=== PATIENT | male | born 1985 | race African-American/Black ===

== ENCOUNTER 2020-04-12 03:01 | Observation (INO) | payer OTHER ==
[2020-04-12] MEDS ORDERED: SODIUM CHLORIDE 0.9% 500 ML INFUS.BAG IV ONE (04:03)
[2020-04-12] MEDS ORDERED: ASPIRIN 81 MG CHEWABLE TABLETS PO ONE (04:04)
[2020-04-12] MEDS ORDERED: MAG HYDROX/AL HYDROX/SIMETH 30 ML UNIT-DOSE CUP PO ONE (04:04)
[2020-04-12] MEDS ORDERED: ACETAMINOPHEN 1000 MG/100 ML VIAL (NON FORMULARY) IVPB ONE (04:04)
[2020-04-12] MEDS ORDERED: ACETAMINOPHEN INJECTION 100 ML IVPB ONE (04:08)
[2020-04-12] MEDS ORDERED: MAG HYDROX/AL HYDROX/SIMETH 30 ML UNIT-DOSE CUP ONE ×2 (04:08)
[2020-04-12] MEDS ORDERED: ASPIRIN 81 MG CHEWABLE TABLETS ONE (04:08)
[2020-04-12 04:28] LABS: BASO % 0.4 % (0-2.0); EOS % 0.5 % (0-4.5); HEMATOCRIT 39.8 % (35.4-49); HEMOGLOBIN 13.3 GM/dL (11.7-16.9); LYMPH % 23.4 % (8-40); MCH 28.8 pg (25.7-33.7); MCHC 33.4 g/dl (32.0-35.9); MEAN CELL VOLUME 86.3 fl (80-96); MEAN PLT VOLUME 8.8 fl (7.5-11.1); MONO % 21.8 % (3.8-10.2); NEUT % 53.9 % (42.8-82.8); PLATELET COUNT 214 K/MM3 (134-434); RBC 4.61 M/mm3 (4.00-5.60); RDW 14.3 % (11.9-15.9)
[2020-04-12] MEDS ORDERED: FAMOTIDINE 20 MG/50 ML IVPB 20 MG/50 ML MG IVPB ONE (04:30)
[2020-04-12 04:36] LABS: INR 1.06 (0.83-1.09)
[2020-04-12 04:39] LABS: ACTIVATED PTT 33.5 SECONDS (25.2-36.5)
[2020-04-12 05:34] LABS: POTASSIUM 4.3 mmol/L (3.5-5.1)
[2020-04-12 05:36] LABS: ALBUMIN 4.2 g/dl (3.4-5.0); BLOOD UREA NITROGEN 14.8 mg/dL (7-18); CALCIUM 8.7 mg/dL (8.5-10.1)
[2020-04-12 05:39] LABS: BILIRUBIN,DIRECT 0.1 mg/dL (0.0-0.2); CREATININE 1.3 mg/dL (0.55-1.3)
[2020-04-12 05:41] LABS: BILIRUBIN,TOTAL 0.2 mg/dL (0.2-1); TOT PROT 8.2 g/dl (6.4-8.2)
[2020-04-12 06:19] LABS: ANISOCYTOSIS 0; MACROCYTOSIS 0; PLATELET ESTIMATE NORMAL
[2020-04-12] MEDS ORDERED: ACETAMINOPHEN 500 MG TABLET (FP) PO ONE (06:23)
[2020-04-12] MEDS ORDERED: ACETAMINOPHEN 325 MG TABLET (FP) ONE (06:29)
[2020-04-12] MEDS ORDERED: LEVOTHYROXINE NA 25 MCG TABLET (FP) ONE (10:00)
[2020-04-12] MEDS ORDERED: LOSARTAN POTASSIUM 50 MG TABLET ONE (10:00)
[2020-04-12] MEDS: LOSARTAN POTASSIUM 50 MG TABLET PO SCH (10:07)
[2020-04-12] MEDS: LEVOTHYROXINE NA 100 MCG TABLET (FP) PO SCH (10:07)
[2020-04-12 13:28] VITALS: BMI 50.9
[2020-04-12] MEDS: ATORVASTATIN CA 10 MG TABLET (FP) PO SCH (22:31)
[2020-04-13] MEDS: LEVOTHYROXINE NA 100 MCG TABLET (FP) PO SCH (06:59)
[2020-04-13 07:19] LABS: BASO % 0.7 % (0-2.0); EOS % 0.1 % (0-4.5); HEMOGLOBIN 13.1 GM/dL (11.7-16.9); LYMPH % 25.8 % (8-40); MCH 28.8 pg (25.7-33.7); MCHC 33.5 g/dl (32.0-35.9); MEAN CELL VOLUME 85.8 fl (80-96); MEAN PLT VOLUME 8.9 fl (7.5-11.1); MONO % 15.9 % (3.8-10.2); NEUT % 57.5 % (42.8-82.8); PLATELET COUNT 175 K/MM3 (134-434); RBC 4.55 M/mm3 (4.00-5.60); RDW 14.2 % (11.9-15.9); WHITE BLOOD COUNT 4.7 K/mm3 (4.0-10.0)
[2020-04-13 07:31] LABS: POTASSIUM 3.9 mmol/L (3.5-5.1)
[2020-04-13 07:33] LABS: ALBUMIN 4.1 g/dl (3.4-5.0); MAGNESIUM 1.9 mg/dL (1.8-2.4)
[2020-04-13 07:37] LABS: CREATININE 1.1 mg/dL (0.55-1.3); PHOSPHOROUS 4.2 mg/dL (2.5-4.9)
[2020-04-13 07:38] LABS: TOT PROT 7.9 g/dl (6.4-8.2)
[2020-04-13 07:39] LABS: BILIRUBIN,TOTAL 0.3 mg/dL (0.2-1)
[2020-04-13] MEDS: LOSARTAN POTASSIUM 50 MG TABLET PO SCH (09:06)
[2020-04-13] MEDS ORDERED: BAMLANIVIMAB 700 MG in SODIUM CHLORIDE 250 ML IVPB ONE (12:00)
[2020-04-13] MEDS ORDERED: ACETAMINOPHEN 325 MG TABLET (FP) PO ONE (20:45)
[2020-04-13] MEDS: ATORVASTATIN CA 10 MG TABLET (FP) PO SCH (21:03)
[2020-04-13] MEDS: ASCORBIC ACID 500 MG TABLET (FP) PO SCH (21:03)
[2020-04-13] MEDS ORDERED: PT OWN MED DRAWER 7, Y5N ONE (21:13)
[2020-04-14] MEDS: LEVOTHYROXINE NA 100 MCG TABLET (FP) PO SCH (06:34)
[2020-04-14 08:42] VITALS: BP 122/90; PULSE 113; TEMP 99.5
[2020-04-14] MEDS: ASCORBIC ACID 500 MG TABLET (FP) PO SCH (09:15)
[2020-04-14] MEDS: LOSARTAN POTASSIUM 50 MG TABLET PO SCH (09:15)
[2020-04-14] MEDS ORDERED: ZINC SULFATE 220 MG CAPSULE (FP) PO SCH (10:00)
[2020-04-14] MEDS ORDERED: CHOLECALCIFEROL (VIT D3) 1,000 UNIT (25 MCG) TABLET PO SCH (10:00)
== END 2020-04-14 10:54 | disposition home or self-care (01) ==
LOC: JER 03:01 → JERBED 04:05 → OBSVTOIN 08:41 → INTOOBSV 08:41 → J4W 12:37
PROVIDERS: ADMIT Internal Medicine; ATTEND Nurse Practitioner Acute Care
PROC: 3E033GC Introduction of Other Therapeutic Substance into Peripheral Vein, Percutaneous Approach (ICD-10-PCS; principal; 2020-04-12)
PROC: 3E0337Z Introduction of Electrolytic and Water Balance Substance into Peripheral Vein, Percutaneous Approach (ICD-10-PCS; 2020-04-12)
DX: U07.1 COVID-19 (principal); E66.9 Obesity, unspecified; Z68.43 Body mass index [BMI] 50.0-59.9, adult; E03.9 Hypothyroidism, unspecified; I10 Essential (primary) hypertension; E78.5 Hyperlipidemia, unspecified; Z29.9 Encounter for prophylactic measures, unspecified; R94.31 Abnormal electrocardiogram [ECG] [EKG]
CPT/HCPCS: 36415; 71046-TC-FY; 80053; 80061; 82248; 82550; 82553; 82728; 83615; 83721; 83735; 84100; 84439; 84443; 84484; 85025; 85379; 85610; 85730; 86140; 86769; 87804; 93005; 93010; 96361; 96365; 99285-25; C9803; G0378; M0239; Q0239; U0003

== ENCOUNTER 2020-04-25 13:00 | Emergency (ER) | payer OTHER ==
[2020-04-25 14:24] VITALS: BP 116/77; PULSE 118; TEMP 97.8; BMI 51.2
== END 2020-04-25 14:41 | disposition home or self-care (01) ==
LOC: JER 13:00
DX: R29.898 Other symptoms and signs involving the musculoskeletal system (principal)
CPT/HCPCS: 99281-25

== ENCOUNTER 2020-06-10 08:25 | Emergency (ER) | payer OTHER ==
[2020-06-10 08:46] VITALS: BP 118/88; PULSE 122; TEMP 99.3; BMI 46.5
[2020-06-10 10:15] LABS: BASO % 0.9 % (0-2.0); EOS % 0.2 % (0-4.5); HEMATOCRIT 41.6 % (35.4-49); HEMOGLOBIN 14.2 GM/dL (11.7-16.9); LYMPH % 22.6 % (8-40); MCH 29.3 pg (25.7-33.7); MCHC 34.1 g/dl (32.0-35.9); MEAN CELL VOLUME 86.1 fl (80-96); MEAN PLT VOLUME 8.6 fl (7.5-11.1); MONO % 6.3 % (3.8-10.2); PLATELET COUNT 268 K/MM3 (134-434); RBC 4.83 M/mm3 (4.00-5.60); RDW 14.9 % (11.9-15.9); WHITE BLOOD COUNT 7.8 K/mm3 (4.0-10.0)
[2020-06-10 10:34] LABS: INR 1.09 (0.83-1.09); PROTHROMBIN TIME (PATIENT) 13.2 SEC (9.7-13.0)
[2020-06-10 10:37] LABS: ACTIVATED PTT 33.4 SECONDS (25.2-36.5)
[2020-06-10 10:40] LABS: CHLORIDE 106 mmol/L (98-107); SODIUM 138 mmol/L (136-145)
[2020-06-10 10:44] LABS: ALBUMIN 4.6 g/dl (3.4-5.0); ANION GAP 7 MMOL/L (8-16); BLOOD UREA NITROGEN 11.2 mg/dL (7-18); CO2 26 mmol/L (21-32); GLUCOSE,RANDOM 105 mg/dL (74-106)
[2020-06-10 10:47] LABS: CREATININE 1.1 mg/dL (0.55-1.3); SGOT/AST 11 U/L (15-37); SGPT/ALT 30 U/L (13-61)
[2020-06-10 10:48] LABS: BILIRUBIN,TOTAL 0.4 mg/dL (0.2-1); TOT PROT 8.7 g/dl (6.4-8.2)
[2020-06-10 10:50] LABS: ALK PHOS 80 U/L (45-117)
== END 2020-06-10 11:37 | disposition home or self-care (01) ==
LOC: JER 08:25
DX: F41.9 Anxiety disorder, unspecified (principal); R07.9 Chest pain, unspecified
CPT/HCPCS: 36415; 71046-TC-FY; 80053; 82550; 82553; 84484; 85025; 85379; 85610; 85730; 93005; 93010; 99284-25

== ENCOUNTER 2020-08-20 20:09 | Emergency (ER) | payer OTHER ==
[2020-08-20 20:19] VITALS: BMI 42.6
[2020-08-20 21:05] VITALS: BP 146/79; PULSE 86; TEMP 97.9
[2020-08-20 21:54] LABS: BASO % 0.7 % (0-2.0); EOS % 0.7 % (0-4.5); HEMATOCRIT 40.7 % (35.4-49); LYMPH % 28.6 % (8-40); MCHC 34.4 g/dl (32.0-35.9); MEAN CELL VOLUME 84.3 fl (80-96); MEAN PLT VOLUME 8.1 fl (7.5-11.1); PLATELET COUNT 265 10^3/uL (134-434); RBC 4.83 M/mm3 (4.00-5.60); RDW 14.2 % (11.9-15.9); WHITE BLOOD COUNT 8.3 K/mm3 (4.0-10.0)
[2020-08-20 22:16] LABS: CHLORIDE 107 mmol/L (98-107); SODIUM 140 mmol/L (136-145)
[2020-08-20 22:17] LABS: ANION GAP 10 MMOL/L (8-16); CALCIUM 9.9 mg/dL (8.5-10.1); CO2 23 mmol/L (21-32)
[2020-08-20 22:18] LABS: BLOOD UREA NITROGEN 10.7 mg/dL (7-18); GLUCOSE,RANDOM 95 mg/dL (74-106)
== END 2020-08-20 23:20 | disposition home or self-care (01) ==
LOC: JER 20:09
DX: R07.9 Chest pain, unspecified (principal)
CPT/HCPCS: 36415; 71046-TC-FY; 80048; 84484; 85025; 93005; 93010; 99284-25

== ENCOUNTER 2021-11-09 19:06 | Emergency (ER) | payer OTHER ==
[2021-11-09 19:15] VITALS: BP 140/82; TEMP 98; BMI 48.7
[2021-11-09 20:58] VITALS: PULSE 96; RESP 17
[2021-11-09 21:01] LABS: BASO % 0.7 % (0-2.0); EOS % 0.5 % (0-4.5); HEMATOCRIT 42.8 % (35.4-49); HEMOGLOBIN 14.4 GM/dL (11.7-16.9); LYMPH % 23.4 % (8-40); MCH 29.2 pg (25.7-33.7); MCHC 33.5 g/dl (32.0-35.9); MEAN PLT VOLUME 8.1 fl (7.5-11.1); MONO % 6.3 % (3.8-10.2); NEUT % 69.1 % (42.8-82.8); PLATELET COUNT 228 10^3/uL (134-434); RBC 4.92 M/mm3 (4.00-5.60); RDW 13.9 % (11.9-15.9); WHITE BLOOD COUNT 8.4 K/mm3 (4.0-10.0)
[2021-11-09 21:20] LABS: CHLORIDE 107 mmol/L (98-107); SODIUM 141 mmol/L (136-145)
[2021-11-09 21:22] LABS: ANION GAP 7 MMOL/L (8-16); CALCIUM 9.4 mg/dL (8.5-10.1); CO2 27 mmol/L (21-32); GLUCOSE,RANDOM 103 mg/dL (74-106)
[2021-11-09 21:23] LABS: ALBUMIN 4.1 g/dl (3.4-5.0); BLOOD UREA NITROGEN 15.5 mg/dL (7-18)
[2021-11-09 21:26] LABS: CREATININE 1.2 mg/dL (0.55-1.3); SGOT/AST 16 U/L (15-37); SGPT/ALT 27 U/L (13-61)
[2021-11-09 21:27] LABS: BILIRUBIN,TOTAL 0.3 mg/dL (0.2-1); TOT PROT 7.8 g/dl (6.4-8.2)
[2021-11-09 21:28] LABS: ALK PHOS 64 U/L (45-117)
== END 2021-11-09 23:48 | disposition home or self-care (01) ==
LOC: JER 19:06
DX: R07.9 Chest pain, unspecified (principal)
CPT/HCPCS: 36415; 71046-TC-FY; 80053; 84484; 85025; 93005; 93010; 99285-25; C9803-CS; U0003; U0005

== ENCOUNTER 2022-10-02 06:11 | Emergency (ER) | payer OTHER ==
[2022-10-02 06:28] VITALS: BMI 49.8
[2022-10-02 09:29] LABS: BASO % 0.4 % (0-2.0); EOS % 0.9 % (0-4.5); HEMATOCRIT 41.2 % (35.4-49); HEMOGLOBIN 13.9 GM/dL (11.7-16.9); LYMPH % 27.8 % (8-40); MCH 29.2 pg (25.7-33.7); MCHC 33.8 g/dl (32.0-35.9); MEAN CELL VOLUME 86.3 fl (80-96); MEAN PLT VOLUME 8.1 fl (7.5-11.1); MONO % 8.1 % (3.8-10.2); NEUT % 62.8 % (42.8-82.8); PLATELET COUNT 231 10^3/uL (134-434); RBC 4.77 M/mm3 (4.00-5.60); RDW 14.3 % (11.9-15.9); WHITE BLOOD COUNT 5.7 K/mm3 (4.0-10.0)
[2022-10-02 09:50] LABS: POTASSIUM 4.4 mmol/L (3.5-5.1)
[2022-10-02 09:52] LABS: CALCIUM 9.6 mg/dL (8.5-10.1)
[2022-10-02 09:53] LABS: ALBUMIN 4.2 g/dl (3.4-5.0); BLOOD UREA NITROGEN 12.8 mg/dL (7-18)
[2022-10-02 09:56] LABS: CREATININE 1.2 mg/dL (0.55-1.3)
[2022-10-02 09:58] LABS: BILIRUBIN,TOTAL 0.5 mg/dL (0.2-1)
[2022-10-02 11:41] VITALS: BP 148/80; PULSE 100; RESP 20; TEMP 98.1
== END 2022-10-02 11:41 | disposition home or self-care (01) ==
LOC: JER 06:11
DX: R53.1 Weakness (principal)
CPT/HCPCS: 36415; 71045-TC-FY; 80053; 84443; 84484; 85025; 93005; 93010; 99285-25

== ENCOUNTER 2023-06-22 07:41 | Emergency (ER) | payer OTHER ==
[2023-06-22 07:51] VITALS: RESP 18; TEMP 98.9; BMI 53.8
[2023-06-22 09:09] LABS: BASO % 0.5 % (0-2.0); EOS % 1.1 % (0-4.5); HEMATOCRIT 42.9 % (35.4-49); HEMOGLOBIN 14.2 GM/dL (11.7-16.9); LYMPH % 28.4 % (8-40); MCH 28.7 pg (25.7-33.7); MCHC 33.2 g/dl (32.0-35.9); MEAN CELL VOLUME 86.6 fl (80-96); MEAN PLT VOLUME 8.1 fl (7.5-11.1); MONO % 8.7 % (3.8-10.2); NEUT % 61.3 % (42.8-82.8); PLATELET COUNT 246 10^3/uL (134-434); RBC 4.95 M/mm3 (4.00-5.60); RDW 14.5 % (11.9-15.9); WHITE BLOOD COUNT 6.3 K/mm3 (4.0-10.0)
[2023-06-22 09:13] LABS: INR 1.14 (0.83-1.09); PROTHROMBIN TIME (PATIENT) 13.2 SEC (9.7-13.0)
[2023-06-22 09:15] LABS: ACTIVATED PTT 32.7 SECONDS (25.2-36.5)
[2023-06-22 09:24] LABS: POTASSIUM 4.2 mmol/L (3.5-5.1)
[2023-06-22 09:26] LABS: CALCIUM 9.5 mg/dL (8.5-10.1)
[2023-06-22 09:27] LABS: BLOOD UREA NITROGEN 11.3 mg/dL (7-18)
[2023-06-22 09:30] LABS: CREATININE 1.3 mg/dL (0.55-1.3)
[2023-06-22 09:31] LABS: BILIRUBIN,TOTAL 0.6 mg/dL (0.2-1)
[2023-06-22 10:49] LABS: URINE APPEARANCE CLEAR; URINE BILIRUBIN NEGATIVE (NEGATIVE); URINE COLOR YELLOW; URINE GLUCOSE (UA) NEGATIVE (NEGATIVE); URINE KETONE NEGATIVE (NEGATIVE); URINE LEUK ESTERASE NEGATIVE (NEGATIVE); URINE NITRITE NEGATIVE (NEGATIVE); URINE PROTEIN NEGATIVE (NEGATIVE); URINE UROBILINOGEN 0.2 mg/dL (0.2-1.0)
[2023-06-22 11:55] VITALS: PULSE 88
[2023-06-22 12:02] VITALS: BP 114/59
== END 2023-06-22 11:54 | disposition home or self-care (01) ==
LOC: JER 07:41
DX: R07.9 Chest pain, unspecified (principal); R00.0 Tachycardia, unspecified; R61 Generalized hyperhidrosis
CPT/HCPCS: 36415; 71046-TC-FY; 71275-TC; 80053; 81003; 83880; 84484; 85025; 85610; 85730; 86850; 86900; 86901; 93005; 93010; 99285-25